=== PATIENT | male | born 1940 | race Two or more races ===

== ENCOUNTER → 2025-04-13 | Outpatient (CLI) | payer MEDICARE, MEDICAID, SELFPAY ==
[2025-04-13 08:42] LABS: Basophils % (Auto) 0 % (0-2.5); Eosinophils # (Auto) 0.1 Thou/mm3 (0.0-0.5); Eosinophils % (Auto) 1 % (0-10); Hematocrit 37.4 % (41.0-53.0); Hemoglobin 13.1 g/dL (13.5-16.0); Immature Granulocytes % (Auto) 0 % (0-0); Immature Granulocytes Auto 0.01 Thou/mm3 (0.00-0.00); Lymphocytes # (Auto) 2.5 Thou/mm3 (1.0-4.8); Lymphocytes % (Auto) 43 % (10-50); Mean Corpuscular Hemoglobin 35.4 pg (25.0-35.0); Mean Corpuscular Volume 101 fL (80-100); Monocytes # (Auto) 0.5 Thou/mm3 (0.0-0.8); Monocytes % (Auto) 8 % (0-12); Neutrophils # (Auto) 2.8 Thou/mm3 (1.8-7.7); Neutrophils % (Auto) 47 % (37-80); Nucleated Red Blood Cell % 0 /100 WBC (0); Platelet Count 183 Thou/mm3 (140-440); RDW Standard Deviation 46.6 fL (35.1-43.9); White Blood Count 5.8 Thou/mm3 (3.8-10.6)
[2025-04-13 08:49] LABS: Glucose Estimated Average 123 mg/dL (80-131); Hemoglobin A1C 5.9 % Hgb (4.8-6.0)
[2025-04-13 09:08] LABS: Alanine Aminotransferase 23 U/L (10-49); Albumin, Serum 4.5 gm/dL (3.4-4.8); Albumin/Globulin Ratio 1.9 (1.2-2.2); Alkaline Phosphatase 95 U/L (46-116); Anion Gap 9 (7-16); Aspartate Amino Transferase 22 U/L (0-34); BUN/Creatinine Ratio 15 Ratio (12-20); Bilirubin,Total 0.5 mg/dL (0.3-1.2); Blood Urea Nitrogen 12 mg/dL (9-23); Calcium 9.2 mg/dL (8.3-10.6); Calcium (Corrected) 9.2 mg/dL (8.5-10.1); Carbon Dioxide 27.2 mMol/L (20.0-31.0); Cardiac Risk Estimate 4.1 RATIO (4.0-6.7); Chloride 106 mMol/L (98-107); Cholesterol 147 mg/dL (132-200); Creatinine (Component) 0.8 mg/dL (0.6-1.3); Free T4 (Free Thyroxine) 1.05 ng/dL (0.89-1.76); Globulin 2.4 gm/dL (2.3-3.5); Glucose 118 mg/dL (74-106); HDL Cholesterol 36 mg/dL (40-60); LDL Cholesterol,Calculated 79 mg/dL (0-130); Osmolality,Calculated 283 (275-295); Potassium 4.4 mMol/L (3.4-5.1); Sodium 142 mMol/L (136-145); Thyroid Stimulating Hormone 3.15 uIU/mL (0.55-4.78); Total Protein 6.9 gm/dL (5.7-8.2); Triglycerides 160 mg/dL (30-150); eGFR > 60 See Note
[2025-04-13 09:10] LABS: Vitamin D 25 Hydroxy Total 36.1 ng/mL (7.3-40.2)
== END | disposition home or self-care (01) ==
PROVIDERS: PCP Internal Medicine; Referring Provider Internal Medicine; Visit Provider Internal Medicine
DX: I11.0 Hypertensive heart disease with heart failure (principal); E11.9 Type 2 diabetes mellitus without complications; E55.9 Vitamin D deficiency, unspecified; I50.9 Heart failure, unspecified
CPT/HCPCS: 36415; 80053; 80061; 82306; 83036; 84439; 84443; 85025